=== PATIENT | male | born 1990 | race Two or more races ===

== ENCOUNTER 2022-02-05 04:21 | Emergency (ER) | payer OTHER ==
[~2022-02-05] VITALS: Ht 175.3 cm; Wt 96.2 kg
[2022-02-05] MEDS ORDERED: NAPROXEN500 MG PO (06:19)
[2022-02-05] MEDS ORDERED: ALLERGY RELIEF10 M3 PO (06:19)
[2022-02-05] MEDS ORDERED: CORTISPORIN EAR10 M1 OT (06:19)
== END 2022-02-05 06:22 | disposition home or self-care (01) ==
LOC: ER 04:21
DX: J31.0 Chronic rhinitis (principal); H92.02 Otalgia, left ear; Z20.828 Contact with and (suspected) exposure to other viral communicable diseases

== ENCOUNTER 2024-06-16 20:36 | Inpatient (IN) | payer OTHER ==
[~2024-06-16] VITALS: Ht 177.8 cm; Wt 93.0 kg
[~2024-06-16 20:36] MED LIST: ALLERGY RELIEF10 M3 PO; CORTISPORIN EAR10 M1 OT; NAPROXEN500 MG PO
--- NOTE | 2024-06-16 21:15 | NUR ---
SE RECIBE PACIENTE ALERTA Y ORIENTADO X 3 ESFERAS AMBULANDO AL AREA DE TRIAGE EL CUAL INDICA QUE PRESENTA MAREOS, UN POCO DE DOLOR DE CORNELIUS Y ANSIEDAD. SE REALIZA EKG Y SE PRESENTA A .
--- NOTE | 2024-06-16 21:28 | NUR ---
SE ORIENTA SOBRE TX MEDICO, REFIERE ENTENDER. SE REALIZAN MUESTRAS DE LABORATORIO BAJO MEDIDAS ASEPTICAS. SE COORDINAN GAURAV X. PACIENTE MANEJADO POR .
[2024-06-16 21:57] LABS: HEMATOCRIT 41.7 % (39.0-48.0); HEMOGLOBIN 14.7 g/dL (13-16.00); MEAN CELL VOLUME 86.8 fL (80.0-100.00); MEAN CORPUSCULAR HEMOGLOBIN 30.6 pg (27.00-32.0); MEAN CORPUSCULAR HGB CONC 35.3 g/dl (32.0-36.0); PLATELET COUNT 247 K/uL (150-450); RED CELL DISTRIBUTION WIDTH 13.5 % (11.5-14.5)
[2024-06-16 22:18] LABS: INR 0.98; PARTIAL THROMBOPLASTIN TIME 26.9 SECONDS (22.0-34.0); PROTHROMBIN TIME 10.7 SECONDS (9.0-11.5)
[2024-06-16 22:24] LABS: ALBUMIN 4.1 gm/dL (3.4-5.0); BILIRUBIN TOTAL 0.65 mg/dL (0.3-1.2); CREATININE SERUM 1.14 mg/dL (0.70-1.30); GFR 74.92; POTASSIUM 4.24 mEq/L (3.5-5.1); TOTAL PROTEIN 7.1 gm/dL (6.4-8.2)
--- NOTE | 2024-06-16 23:16 | NUR ---
SE RECIBE PTE ALERTA ORIENTADO X3.EN EMPERATRIZ CON BARANDAS ELEVADAS POR PAINTER SEGURIDAD CON TIMBRE ABCCESIBLE.PENDIENTE REEVALUACION MEDICA.
[2024-06-16] MEDS ORDERED: 0.9 % SODIUM CHLORIDE 1,000 ML IV SCH (23:30)
[2024-06-16] MEDS ORDERED: OSELTAMIVIR PHOSPHATE 75 MG CAPSULE PO SCH (23:31)
[2024-06-16] MEDS ORDERED: ACETAMINOPHEN 500 MG GEL..CAP PO PRN (23:45)
[2024-06-17] VITALS (8 sets, daily range): BP systolic 109–120; BP diastolic 65–72; O2SAT 95–100
[2024-06-17 03:56] LABS: URINE APPEARANCE Clear; URINE BILIRRUBIN Negative (NEGATIVE); URINE BLOOD Negative; URINE COLOR Yellow; URINE GLUCOSE Negative (NEGATIVE); URINE KETONE 15 (NEGATIVE); URINE LEUKOCYTE Negative; URINE NITRATE Negative; URINE PROTEIN Negative (NEGATIVE); URINE UROBILINOGEN 0.2 E.U./dl
[2024-06-17 04:07] LABS: URINE BACTERIA 0 uL (0.0-1933); URINE RBC 0.1 uL (0.0-20.8); URINE WBC 0.3 uL (0.0-23.2)
[2024-06-17] MEDS ORDERED: FAMOTIDINE/PF 20 MG in 0.9 % SODIUM CHLORIDE 8 ML IV PUSH SCH (09:00)
[2024-06-18] VITALS: BP 100/55; O2SAT 96
[2024-06-18 01:00] VITALS: O2SAT 97
[2024-06-18 05:00] VITALS: O2SAT 96
[2024-06-18 08:19] VITALS: BP 112/52; O2SAT 96
[2024-06-18 09:44] VITALS: O2SAT 96
[2024-06-18 11:14] LABS: HEMATOCRIT 45.2 % (39.0-48.0); HEMOGLOBIN 15.7 g/dL (13-16.00); MEAN CELL VOLUME 88.2 fL (80.0-100.00); MEAN CORPUSCULAR HEMOGLOBIN 30.7 pg (27.00-32.0); MEAN CORPUSCULAR HGB CONC 34.8 g/dl (32.0-36.0); PLATELET COUNT 257 K/uL (150-450); RED BLOOD COUNT 5.13 M/uL (4.00-6.00); RED CELL DISTRIBUTION WIDTH 13.5 % (11.5-14.5)
[2024-06-18 12:06] LABS: CALCIUM 9.7 mg/dL (8.5-10.1); CREATININE SERUM 1.15 mg/dL (0.70-1.30); GFR 74.17; POTASSIUM 4.33 mEq/L (3.5-5.1)
== END 2024-06-18 14:23 | disposition home or self-care (01) | DRG 195 ==
LOC: ER 20:38 → SURG 23:34 → SEC-K 23:34 → SURG 06-17 01:17 → SURH 06-17 21:25
PROVIDERS: General Practice; ADMIT Student in an Organized Health Care Education/Training Program; ATTEND Student in an Organized Health Care Education/Training Program
PROC: BW28ZZZ Computerized Tomography (CT Scan) of Head (ICD-10-PCS; principal; 2024-06-16)
PROC: B24BZZZ Ultrasonography of Heart with Aorta (ICD-10-PCS; 2024-06-16)
PROC: 4A12X4Z Monitoring of Cardiac Electrical Activity, External Approach (ICD-10-PCS; 2024-06-17)
DX: J10.1 Influenza due to other identified influenza virus with other respiratory manifestations (principal); R00.1 Bradycardia, unspecified; R55 Syncope and collapse